=== PATIENT | male | born 1990 | race Caucasian/White ===

== ENCOUNTER 2022-09-16 11:46 | Emergency (ER) | payer MEDICAID ==
[~2022-09-16] VITALS: Ht 175.3 cm; Wt 69.0 kg
[2022-09-16 11:49] VITALS: BP 154/93
[2022-09-16] MEDS ORDERED: IBUP-1986 PO (13:05)
== END 2022-09-16 13:38 | disposition home or self-care (01) ==
LOC: ER 11:47
DX: S52.501A Unspecified fracture of the lower end of right radius, initial encounter for closed fracture (principal); X58.XXXA Exposure to other specified factors, initial encounter; Y93.89 Activity, other specified; Y92.89 Other specified places as the place of occurrence of the external cause; Y99.8 Other external cause status
CPT/HCPCS: 29125; 73110; 99284; A6449